=== PATIENT | male | born 1930 | race Caucasian/White ===

== ENCOUNTER 2016-10-24 04:06 | Inpatient (IN) | payer OTHER ==
[~2016-10-24] VITALS: Ht 182.9 cm; Wt 81.3 kg
[~2016-10-24 04:06] MED LIST: ACIDOPHILUS LA1 EACH PO; AGGRENOX1 CAPSULE PO; ASCORBIC ACID250 MG PO; ASPIR-LOW81 MG PO; ASPIRIN-DIPYRI1 EACH PO; AVODART0.5 MG PO; CEFUROXIME250 MG PO; CELEBREX200 MG PO; COLACE100 MG PO; DAILY VITE1 EAC1 PO; DOCUSATE SODIU100 MG PO; FEOSOL325 MG PO; FERROUS GLUCON324 MG PO; FINASTERIDE5 MG PO; FLORASTOR250 MG PO; KEFLEX500 MG PO; KENALOG,ARISTOC15 G3 TP; KENALOG,ARISTOC80 G1 TP; LEVOXYL100 MCG PO; LIDEX 0.05% OIN15 GM TP; LISINOPRIL10 MG PO; MULTIPLE VITAM1 EACH PO; NATURE'S TEARS15 M1 BOTH EYES; OSCAL PO; OYSCO 500+D TA1 EACH PO; OYSTER SHELL C1 EA16 PO; PAROXETINE HCL40 MG PO; PAXIL10 MG PO; PAXIL20 MG PO; PERSANTINE50 MG PO; PRAVASTATIN SOD40 MG PO; PROBIOTIC1 EAC1 PO; PROBIOTIC250 MG PO; PROSCAR5 MG PO; SYNTHROID100 MCG PO; SYSTANE ULTRA 015 ML BOTH EYES; TAMSULOSIN HCL0.4 MG PO; TRAZODONE HCL50 MG PO; TYLENOL PM1 CAPLET PO; TYLENOL REGULA325 MG PO; Tears Naturale II,Ar BOTH EYES; VITAMIN C250 MG PO; ZOLOFT25 MG PO; [UNRECOGNIZED DRUG - OTHER] PO
[2016-10-24 04:45] LABS: HEMATOCRIT 35.6 % (38.0-50.0); MCH 31.6 PG (29.0-34.0); MCHC 33.4 G/DL (30.0-36.0); MCV 94.4 FL (86-99); PLATELET COUNT 187 K/uL (156-360); RBC DIS.WIDTH-CV 12.5 % (11.8-14.6); RBC DIS.WIDTH-SD 41.8 % (39-53); RED BLOOD COUNT 3.77 M/uL (4.00-5.50); WHITE BLOOD COUNT 4.7 K/uL (4.1-10.2)
[2016-10-24 04:55] LABS: CHLORIDE 106 mEq/L (99-109); SODIUM 141 mEq/L (136-147)
[2016-10-24 04:56] LABS: PROTHROMBIN TIME 10.5 (9.2-11.2)
[2016-10-24 04:57] LABS: GLUCOSE 108 mg/dL (70-99)
[2016-10-24 04:58] LABS: ANION GAP 11 MEQ/L (2-14)
[2016-10-24 05:01] LABS: GFR ESTIMATE (CALCULATED) 41 mL/min/
[2016-10-24 05:02] LABS: UREA NITROGEN (BUN) 42 mg/dL (9-23)
[2016-10-24] MEDS ORDERED: PROSCAR5 MG PO (05:55)
[2016-10-24] MEDS ORDERED: FLORASTOR250 MG PO (05:55)
[2016-10-24] MEDS ORDERED: PRAVACHOL40 MG PO (05:56)
[2016-10-24] MEDS ORDERED: TRAZODONE HCL50 MG PO (05:57)
[2016-10-24 07:09] LABS: ADD MIUA? NO; BILIRUBIN NEGATIVE; BLOOD NEGATIVE; COLOR YELLOW ((YELLOW)); GLUCOSE (STRIP) NEGATIVE; KETONES NEGATIVE; LEUKOCYTES NEGATIVE; NITRITE NEGATIVE; PROTEIN (STRIP) NEGATIVE; SPECIFIC GRAVITY 1.011 (1.000-1.030); UROBILINOGEN 0.2 MG/DL (0.2-1.0)
[2016-10-24] MEDS ORDERED: ACETAMINOPHEN325 M1 PO ×2 (07:52→07:54)
[2016-10-24] MEDS ORDERED: PRAMIPEXOLE0.125 MG PO (07:57)
[2016-10-24 09:00] VITALS: BP 150/76
[2016-10-24 13:08] VITALS: BP 117/58
[2016-10-24 16:46] VITALS: BP 101/59
[2016-10-24 20:00] VITALS: BP 103/57
[2016-10-25] VITALS: BP 140/75
[2016-10-25 03:47] VITALS: BP 164/86
[2016-10-25 06:30] LABS: HEMATOCRIT 35.1 % (38.0-50.0); MCH 31.9 PG (29.0-34.0); MCV 96.4 FL (86-99); PLATELET COUNT 160 K/uL (156-360); RBC DIS.WIDTH-CV 12.7 % (11.8-14.6); RBC DIS.WIDTH-SD 44.8 % (39-53); RED BLOOD COUNT 3.64 M/uL (4.00-5.50)
[2016-10-25 06:31] LABS: WHITE BLOOD COUNT 7.9 K/uL (4.1-10.2)
[2016-10-25 06:49] LABS: ANION GAP 9 MEQ/L (2-14); CHLORIDE 105 MEQ/L (99-109); GFR ESTIMATE (CALCULATED) 55 mL/min/; GLUCOSE 105 mg/dL (70-99); POTASSIUM 4.7 MEQ/L (3.7-5.4); SAMPLE HEMOLYSIS CHECK 0; SAMPLE ICTERIC CHECK 0; SAMPLE LIPEMIA CHECK 0; SODIUM 138 MEQ/L (136-147); UREA NITROGEN (BUN) 27 mg/dL (9-23)
[2016-10-25 07:52] VITALS: BP 156/82
[2016-10-25 13:15] VITALS: BP 95/55
[2016-10-25 16:55] VITALS: BP 117/63
[2016-10-25 18:58] LABS: HEMATOCRIT 26.6 % (38.0-50.0); MCH 30.9 PG (29.0-34.0); MCV 96.7 FL (86-99); MEAN PLAT.VOLUME 11.1 uM^3 (9.0-12.4); PLATELET COUNT 142 K/uL (156-360); RBC DIS.WIDTH-CV 12.9 % (11.8-14.6); RED BLOOD COUNT 2.75 M/uL (4.00-5.50); WHITE BLOOD COUNT 7.6 K/uL (4.1-10.2)
[2016-10-25 19:24] LABS: ANION GAP 8 MEQ/L (2-14); CHLORIDE 107 MEQ/L (99-109); GFR ESTIMATE (CALCULATED) 51 mL/min/; GLUCOSE 158 mg/dL (70-99); POTASSIUM 4.6 MEQ/L (3.7-5.4); SAMPLE HEMOLYSIS CHECK 0; SAMPLE ICTERIC CHECK 0; SAMPLE LIPEMIA CHECK 0; SODIUM 138 MEQ/L (136-147); UREA NITROGEN (BUN) 27 mg/dL (9-23)
[2016-10-25 23:44] VITALS: BP 160/84
[2016-10-26] VITALS (7 sets, daily range): BP systolic 124–172; BP diastolic 63–85
[2016-10-26 04:55] LABS: HEMATOCRIT 28.4 % (38.0-50.0)
[2016-10-26 09:25] LABS: HEMATOCRIT 27.9 % (38.0-50.0); MCH 31.8 PG (29.0-34.0); MCHC 33.7 G/DL (30.0-36.0); MCV 94.3 FL (86-99); MEAN PLAT.VOLUME 10.8 uM^3 (9.0-12.4); PLATELET COUNT 144 K/uL (156-360); RBC DIS.WIDTH-CV 12.4 % (11.8-14.6); RBC DIS.WIDTH-SD 42.3 % (39-53); RED BLOOD COUNT 2.96 M/uL (4.00-5.50); WHITE BLOOD COUNT 9.6 K/uL (4.1-10.2)
[2016-10-26 10:03] LABS: ANION GAP 9 MEQ/L (2-14); CHLORIDE 106 MEQ/L (99-109); GFR ESTIMATE (CALCULATED) 51 mL/min/; GLUCOSE 133 mg/dL (70-99); POTASSIUM 4.5 MEQ/L (3.7-5.4); SAMPLE HEMOLYSIS CHECK 0; SAMPLE ICTERIC CHECK 0; SAMPLE LIPEMIA CHECK 0; SODIUM 139 MEQ/L (136-147); UREA NITROGEN (BUN) 23 mg/dL (9-23)
[2016-10-26 10:19] LABS: BASE EXCESS 1.9 mEq/L (-3 to +3); BICARBONATE 24.7 mEq/L (22-26); CARBOXY HGB 1.8 % (0-5); METHEMOGLOBIN 1.1 % (0-1.5); PCO2 31 mm Hg (35-45); PO2 75 mm Hg (80-100); pH 7.51 (7.35-7.45)
[2016-10-26 10:20] LABS: COMMENTS - BLOOD GASES A+C+; DEVICE NC; O2 FLOW 2 L/MIN; SITE LR
[2016-10-26 10:22] LABS: POINT-OF-CARE METER ID UU14149397
[2016-10-26 10:24] LABS: CHLORIDE 109 mEq/L (99-109); POTASSIUM 4.5 mEq/L (3.7-5.4); SODIUM 140 mEq/L (136-147)
[2016-10-26 10:25] LABS: GLUCOSE 134 mg/dL (70-99)
[2016-10-26 10:27] LABS: ANION GAP 9 MEQ/L (2-14)
[2016-10-26 10:29] LABS: GFR ESTIMATE (CALCULATED) 47 mL/min/
[2016-10-26 10:30] LABS: UREA NITROGEN (BUN) 24 mg/dL (9-23)
[2016-10-27] VITALS (7 sets, daily range): BP systolic 130–166; BP diastolic 66–97
[2016-10-27 07:07] LABS: HEMATOCRIT 26.9 % (38.0-50.0); MCH 31.5 PG (29.0-34.0); MCHC 33.5 G/DL (30.0-36.0); MCV 94.1 FL (86-99); PLATELET COUNT 136 K/uL (156-360); RBC DIS.WIDTH-CV 12.5 % (11.8-14.6); RBC DIS.WIDTH-SD 42.2 % (39-53); RED BLOOD COUNT 2.86 M/uL (4.00-5.50); WHITE BLOOD COUNT 8.6 K/uL (4.1-10.2)
[2016-10-27 07:53] LABS: ANION GAP 11 MEQ/L (2-14); CHLORIDE 109 MEQ/L (99-109); GFR ESTIMATE (CALCULATED) > 59 mL/min/; POTASSIUM 4.1 MEQ/L (3.7-5.4); SAMPLE HEMOLYSIS CHECK 0; SAMPLE ICTERIC CHECK 0; SAMPLE LIPEMIA CHECK 0; SODIUM 141 MEQ/L (136-147); UREA NITROGEN (BUN) 23 mg/dL (9-23)
[2016-10-27 07:56] LABS: GLUCOSE 91 mg/dL (70-99)
[2016-10-27 09:12] LABS: INFLUENZA A VIRAL ANTIGEN NEGATIVE; INFLUENZA B VIRAL ANTIGEN NEGATIVE
[2016-10-27 11:06] LABS: ADD MIUA? YES; BILIRUBIN NEGATIVE; BLOOD LARGE; COLOR YELLOW ((YELLOW)); GLUCOSE (STRIP) NEGATIVE; KETONES 40; LEUKOCYTES NEGATIVE; NITRITE NEGATIVE; PROTEIN (STRIP) 30; SPECIFIC GRAVITY 1.023 (1.000-1.030); UROBILINOGEN 0.2 MG/DL (0.2-1.0)
[2016-10-27 11:23] LABS: WHITE BLOOD CELLS NONE SEEN /HPF (0-5)
[2016-10-27 11:24] LABS: BACTERIA 1+ /HPF; CASTS NONE SEEN /LPF; CRYSTALS NONE SEEN; EPITHELIAL CELLS RARE /HPF; MUCUS NONE SEEN /LPF; UCUL ADDED? NO
[2016-10-27 11:55] LABS: Estimated Average Glucose 108 mg/dL (70-123); HEMOGLOBIN A1c (GLYCOHEMOGLOB) 5.4 % HGB (Below 5.7)
[2016-10-28 03:28] VITALS: BP 134/62
[2016-10-28 07:06] LABS: HEMATOCRIT 26.4 % (38.0-50.0); MCH 31.2 PG (29.0-34.0); MCV 94.6 FL (86-99); MEAN PLAT.VOLUME 10.9 uM^3 (9.0-12.4); PLATELET COUNT 176 K/uL (156-360); RBC DIS.WIDTH-CV 12.8 % (11.8-14.6); RBC DIS.WIDTH-SD 44.7 % (39-53); RED BLOOD COUNT 2.79 M/uL (4.00-5.50); WHITE BLOOD COUNT 9.9 K/uL (4.1-10.2)
[2016-10-28 07:32] LABS: HDL CHOLESTEROL 28 MG/DL (Desirable>=40); LDL CHOLESTEROL 42 mg/dL (Desirable<100); NON-HDL CHOLESTEROL 60 mg/dL (Desirable<160); TOTAL CHOLESTEROL 88 mg/dL (Desirable<200); TRIGLYCERIDES 89 MG/DL (Normal: <150)
[2016-10-28 07:40] VITALS: BP 168/76
[2016-10-28 11:15] VITALS: BP 173/81
[2016-10-28 14:28] VITALS: BP 74/32
[2016-10-29 08:27] VITALS: BP 00/00
[2016-10-29] MEDS ORDERED: MORPHINE CON20 MG/M1 PO (11:47)
[2016-10-29] MEDS ORDERED: ATIVAN INTE2 MG/1 ML PO (11:47)
[2016-10-29] MEDS ORDERED: ATROPINE 1100 DROP/5 SL (11:47)
[2016-10-29] MEDS ORDERED: LEVSIN0.125 MG PO (14:51)
== END 2016-10-29 19:18 | disposition home or self-care (01) | DRG 469 ==
LOC: EME 04:06 → 5EAST 06:04 → 4EAST 06:04 → 3EAST 06:04 → EDOF 06:04 → 3EAST 09:07 → 4EAST 10-26 10:27 → 5EAST 10-28 19:40
PROVIDERS: Emergency Medicine; Hospitalist; Orthopaedic Surgery; Orthopaedic Surgery Sports Medicine; Physician Assistant
PROC: 0SR90J9 Replacement of Right Hip Joint with Synthetic Substitute, Cemented, Open Approach (ICD-10-PCS; principal; 2016-10-25)
DX: S72.041A Displaced fracture of base of neck of right femur, initial encounter for closed fracture (principal); F05 Delirium due to known physiological condition; I63.312 Cerebral infarction due to thrombosis of left middle cerebral artery; N17.9 Acute kidney failure, unspecified; E86.0 Dehydration; M25.552 Pain in left hip; E03.9 Hypothyroidism, unspecified; D50.9 Iron deficiency anemia, unspecified; E78.00 Pure hypercholesterolemia, unspecified; I10 Essential (primary) hypertension; Z66 Do not resuscitate; W19.XXXA Unspecified fall, initial encounter; R56.9 Unspecified convulsions; E87.3 Alkalosis; E87.2 Acidosis; Z51.5 Encounter for palliative care; Z86.73 Personal history of transient ischemic attack (TIA), and cerebral infarction without residual deficits; Y92.199 Unspecified place in other specified residential institution as the place of occurrence of the external cause; Y99.9 Unspecified external cause status; Y93.01 Activity, walking, marching and hiking; Z88.8 Allergy status to other drugs, medicaments and biological substances
CPT/HCPCS: 36600; 70450; 70551; 71010; 71020; 73130; 73502; 80048; 80048 91; 80061; 81003; 82803; 82948; 83036; 83605; 85014; 85018; 85027; 85049; 85610; 85730; 86850; 86900; 86901; 86920; 87040; 87502; 93005; 93306; 93880; 95819; 99281; 99285; C1713; J0690; J1170; J1644; J1650; J1953; J2060; J2270; J2405; J7030; J7050; J7120